=== PATIENT | female | born 1970 | race Caucasian/White ===

== ENCOUNTER → 2022-05-23 | Outpatient (CLI) | payer OTHER ==
--- NOTE | 2022-05-23 12:33 | Diagnostic Imaging Report ---
INDICATION: Right hip pain for years. No history of trauma. FINDINGS: 2 views. Femoral heads in normal articulation. Articulating surfaces are smooth. Joint spaces well-maintained. No evidence of AVN. No fractures are demonstrated in the hip. No soft tissue calcifications about the hip. IMPRESSION: Normal right hip. Dictated by: Dictated on workstation # [id number]
--- NOTE | 2022-05-23 14:27 | Diagnostic Imaging Report ---
INDICATION: Low back pain. EXAMINATION: Lumbosacral spine, 5 views. FINDINGS: Good alignment of the vertebral bodies. Body height is well-maintained. There is considerable narrowing of the disc space at L5-S1 with sclerotic type III Modic endplate changes. The remaining discs show good preservation of height. There is minimal hypertrophic lipping anteriorly at the L1-L2 disc space. Facets show good alignment. The oblique views show no evidence of pars defects. SI joints are symmetric with minimal sclerotic change. 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 Type III sclerotic Modic endplate changes. Dictated by: Dictated on workstation # [id number]
== END ==
LOC: ORTHO 08:30
PROVIDERS: ATTEND Orthopaedic Surgery
DX: M47.817 Spondylosis without myelopathy or radiculopathy, lumbosacral region (principal); M25.551 Pain in right hip
CPT/HCPCS: 72110; 73502; G0463; 99213

== ENCOUNTER → 2022-05-30 | Outpatient (CLI) | payer OTHER ==
--- NOTE | 2022-05-30 12:03 | Diagnostic Imaging Report ---
PROCEDURE: MRI lumbar spine without contrast. TECHNIQUE: Multiplanar, multisequence MRI of the lumbar spine was performed without contrast. INDICATION: Low back pain. No known injury. COMPARISON: 05/23/2022. FINDINGS: 5 lumbar type vertebral bodies are visualized with the last well-formed disc space designated L5-S1. No acute fracture or dislocation is seen in the lumbar spine. Alignment is anatomic. Vertebral body heights are well-maintained. Modic type I endplate degenerative changes are present in the L5-S1 level. The conus terminates at the L1 level. No masses are seen associated with the conus or nerve roots of the cauda equina. No epidural collections are identified. Degenerative changes are as follows: T12-L1: No significant spinal canal or foraminal stenosis. L1-L2: No significant spinal canal or foraminal stenosis. L2-L3: No significant spinal canal or foraminal stenosis. L3-L4: No significant spinal canal or foraminal stenosis. L4-L5: No significant spinal canal stenosis and no significant foraminal stenosis. L5-S1: Disc desiccation with broad-based disc bulge, facet hypertrophy, and buckling of the ligamentum flavum results in no significant spinal canal narrowing and mild to moderate bilateral foraminal narrowing. Paravertebral soft tissues are unremarkable. IMPRESSION: 1. No acute fracture or dislocation in the lumbar spine. 2. Degenerative changes in the lumbar spine at the L5-S1 level with mild to moderate bilateral foraminal narrowing. No evidence of significant spinal canal stenosis. 3. Modic type I endplate degenerative changes at the L5-S1 level. Dictated by: Dictated on workstation # [id number]
== END ==
LOC: RAD 07:50
PROVIDERS: ATTEND Orthopaedic Surgery
DX: M51.37 Other intervertebral disc degeneration, lumbosacral region (principal); M48.07 Spinal stenosis, lumbosacral region
CPT/HCPCS: 72148